=== PATIENT | female | born 1975 | race Caucasian/White ===

== ENCOUNTER 2020-06-08 10:25 | Emergency (ER) | payer BC ==
[~2020-06-08] VITALS: Ht 177.8 cm; Wt 113.4 kg
[~2020-06-08 10:25] MED LIST: BUSPAR30 MG PO; CARDIZEM CD240 MG PO; FLECAINIDE ACET50 M1 PO; METFORMIN HCL500 M2 PO; METOPROLOL; MICROGESTIN1 EAC1 PO
[2020-06-08 12:49] VITALS: BP 174/89
== END 2020-06-08 12:49 | disposition home or self-care (01) ==
LOC: ER 10:25
DX: S30.0XXA Contusion of lower back and pelvis, initial encounter (principal); E11.9 Type 2 diabetes mellitus without complications; Z79.899 Other long term (current) drug therapy; Z88.1 Allergy status to other antibiotic agents; Z88.8 Allergy status to other drugs, medicaments and biological substances; W01.198A Fall on same level from slipping, tripping and stumbling with subsequent striking against other object, initial encounter; Y93.89 Activity, other specified; Y92.098 Other place in other non-institutional residence as the place of occurrence of the external cause; Y99.8 Other external cause status